=== PATIENT | female | born 1995 | race Caucasian/White ===

== ENCOUNTER 2024-12-12 18:21 | Emergency (ER) | payer MEDICAID, OTHER ==
[~2024-12-12] VITALS: Ht 165.1 cm; Wt 70.5 kg
[2024-12-12 18:24] VITALS: BP 102/70; PULSE 94; RESP 18; TEMP 98.9; O2SAT 99
[2024-12-12] MEDS ORDERED: LAMO-24 PO (18:28)
[2024-12-12 18:45] LABS: APPEARANCE,URINE CLEAR (CLEAR); GLUCOSE, URINE (UA) NEGATIVE (NEGATIVE); LEUKOCYTE ESTERASE ,URINE NEGATIVE (NEGATIVE); NITRATE,URINE POSITIVE (NEGATIVE); OCCULT BLOOD,URINE LARGE (NEGATIVE); SPECIFIC GRAVITIY, URINE 1.011 (1.003-1.030)
[2024-12-12 18:59] LABS: HCG,QUAL URINE NEGATIVE (NEGATIVE)
[2024-12-12] MEDS ORDERED: SULF1TAB42 PO (20:03)
== END 2024-12-12 20:34 | disposition home or self-care (01) ==
LOC: EMS 18:21
DX: N39.0 Urinary tract infection, site not specified (principal); F31.9 Bipolar disorder, unspecified; Z79.899 Other long term (current) drug therapy
CPT/HCPCS: 81001; 84703; 87491; 87591; 99283

== ENCOUNTER 2025-02-25 17:16 | Emergency (ER) | payer OTHER ==
[~2025-02-25] VITALS: Ht 165.1 cm; Wt 72.7 kg
[~2025-02-25 17:16] MED LIST: LAMO-24 PO; SULF1TAB42 PO
[2025-02-25 17:19] VITALS: BP 112/65; PULSE 91; RESP 18; TEMP 97.9; O2SAT 97
[2025-02-25 17:40] LABS: APPEARANCE,URINE CLEAR (CLEAR); GLUCOSE, URINE (UA) NEGATIVE (NEGATIVE); HCG,QUAL URINE POSITIVE (NEGATIVE); LEUKOCYTE ESTERASE ,URINE NEGATIVE (NEGATIVE); NITRATE,URINE NEGATIVE (NEGATIVE); OCCULT BLOOD,URINE NEGATIVE (NEGATIVE); SPECIFIC GRAVITIY, URINE 1.024 (1.003-1.030)
[2025-02-25 17:57] LABS: SQUAMOUS EPITHELIAL CELL,UR Moderate /LPF (None Seen)
== END 2025-02-25 20:13 | disposition home or self-care (01) ==
LOC: EMS 17:16
DX: O23.41 Unspecified infection of urinary tract in pregnancy, first trimester (principal); O99.341 Other mental disorders complicating pregnancy, first trimester; F31.9 Bipolar disorder, unspecified; Z79.899 Other long term (current) drug therapy; Z3A.01 Less than 8 weeks gestation of pregnancy
CPT/HCPCS: 81001; 84703; 99283